=== PATIENT | female | born 1955 ===

== ENCOUNTER 2018-07-22 10:56 | Emergency (ER) | payer OTHER ==
[~2018-07-22] VITALS: Ht 157.5 cm; Wt 64.9 kg
--- NOTE | 2018-07-22 11:02 | NUR ---
Pt presents to ED by EMS from primary care doctors office today with c/o HTN. Pt has antihypertensive medications that she is compliant with. Pt denies cp, sob, n/v/d, light headedness, or headache. Pt's skin is pink, warm, dry. Pt is AOX4, CMS intact, Neuro intact, and has unlabored respirations equal biltareally. [employer] at bedside doing EKG. All safety measures in place. Pt connected to all monitors. Call light within reach. No needs expressed at this time.
--- NOTE | 2018-07-22 11:25 | NUR ---
Pt ambulates to restroom SBA with steady gait and balance. NADN, no defecits observed.
--- NOTE | 2018-07-22 11:25 | NUR ---
Pt back to room from bathroom.
[2018-07-22] MEDS ORDERED: ENALAPRILAT 1.25 MG/ML, 2ML ONE (11:26)
[2018-07-22] MEDS ORDERED: ENALAPRILAT 1.25 MG/ML, 2ML IV ONE (11:30)
[2018-07-22 11:45] LABS: BASOPHILS # (AUTO) 0.08 x10^3/uL (0-0.1); BASOPHILS % (AUTO) 1 % (0-1); EOSINOPHILS # (AUTO) 0.36 x10^3/uL (0-0.4); EOSINOPHILS % (AUTO) 4 % (1-7); LYMPHOCYTES # (AUTO) 2.22 x10^3/uL (1-3.4); LYMPHOCYTES % (AUTO) 26 % (22-44); MD NO; MEAN CORPUSCULAR HEMOGLOBIN 32.9 pg (27.0-34.8); MEAN CORPUSCULAR HGB CONC 34.6 g/dL (32.4-35.8); MEAN PLATELET VOLUME 8.7 fL (7.4-10.4); MONOCYTES # (AUTO) 0.49 x10^3/uL (0.2-0.8); MONOCYTES % (AUTO) 6 % (2-9); NEUTROPHILS % (AUTO) 64 % (42-75); PLATELET COUNT 305 x10^3/uL (130-400); RED BLOOD COUNT 4.54 x10^6/uL (3.82-5.3); RED CELL DISTRIBUTION WIDTH 13.9 % (9.6-15.2)
[2018-07-22 11:53] LABS: ALBUMIN 3.6 g/dL (3.4-5.0); ANION GAP 6 mmol/L (5-15); CHLORIDE 113 mmol/L (98-107); CREATININE 0.69 mg/dL (0.55-1.02)
[2018-07-22 11:57] LABS: TROPONIN I < 0.015 ng/mL (0.000-0.045)
[2018-07-22 12:25] VITALS: BP 130/82
--- NOTE | 2018-07-22 12:26 | NUR ---
TASK RN: REPEAT BP 130/82 HR 48 PT DENIES PAIN. CHART UP FOR RECHECK
--- NOTE | 2018-07-22 12:27 | NUR ---
DR DELGADO AT BEDSIDE. D/C POC DISCUSSED AND QUESTIONS ANSWERED.
--- NOTE | 2018-07-22 12:50 | NUR ---
TASK RN: Patient/Caregiver given discharge instructions and they have confirmed that they understand the instructions. Patient ambulatory with steady gait.
== END 2018-07-22 14:04 | disposition home or self-care (01) ==
LOC: ED 13:04
DX: I10 Essential (primary) hypertension (principal); F17.200 Nicotine dependence, unspecified, uncomplicated
CPT/HCPCS: 36415; 80048; 82040; 84484; 85025; 93005; 96374; 99284; 99406